=== PATIENT | male | born 1995 | race African-American/Black ===

== ENCOUNTER 2017-03-02 13:15 | Emergency (ER) | payer SELFPAY ==
[2017-03-02 13:21] VITALS: BP 108/79
[2017-03-02] MEDS ORDERED: IBUPROFEN 800 MG TABLET PO ONE (13:57)
[2017-03-02] MEDS ORDERED: OXYCODONE-ACETAMINOPHEN 5-325 MG TABLET PO ONE (13:57)
--- NOTE | 2017-03-02 14:06 | ER Document Report ---
HPI - HPI Patient complains to provider of: Left thigh pain Onset: Just prior to arrival Onset/Duration: Sudden Quality of pain: Sharp Pain Level: 3 Context: Pt states that he was playing basketball and was attempting to jump to perform an layup. Patient states that with jumping he felt a sudden pop in the left posterior thigh area. Patient has complained of pain with ambulation since then. Associated Symptoms: Other - left posterior thigh pain. denies: Fever Exacerbated by: Standing, Movement, Walking Relieved by: Denies Similar symptoms previously: No Recently seen / treated by doctor: No - ROS ROS below otherwise negative: Yes Systems Reviewed and Negative: Yes All other systems reviewed and negative - CONSTITUTIONAL Constitutional: DENIES: Fever, Chills - NEURO Neurology: DENIES: Weakness - MUSCULOSKELETAL Musculoskeletal: REPORTS: Extremity pain. DENIES: Swelling - DERM Skin Color: Normal Skin Problems: None Past Medical History - General Information source: Patient - Social History Smoking Status: Current Every Day Smoker Frequency of alcohol use: None Drug Abuse: None Occupation: recycling Family History: Reviewed & Not Pertinent Patient has suicidal ideation: No Patient has homicidal ideation: No - Medical History Medical History: Negative Renal/ Medical History: Denies: Hx Peritoneal Dialysis Surgical Hx: Negative - Immunizations Hx Diphtheria, Pertussis, Tetanus Vaccination: Yes Vertical Provider Document - CONSTITUTIONAL Agree With Documented VS: Yes Exam Limitations: No Limitations General Appearance: WD/WN, No Apparent Distress - INFECTION CONTROL TRAVEL OUTSIDE OF THE [place] IN LAST 30 DAYS: No - HEENT HEENT: Atraumatic, Normocephalic - NECK Neck: Normal Inspection, Supple - RESPIRATORY Respiratory: Breath Sounds Normal, No Respiratory Distress O2 Sat by Pulse Oximetry: 96 - CARDIOVASCULAR Cardiovascular: Regular Rate, Regular Rhythm, No Murmur Pulses: Normal: Posterior tibial, Dorsalis pedis - BACK Back: Normal Inspection - MUSCULOSKELETAL/EXTREMETIES Musculoskeletal/Extremeties: MAEW, FROM, Tender - pt with left posterior bicep femoris muscle, muscles soft to palpation, no palpable deformity swelling. No ecchymosis. No concern for compartment syndrome - NEURO Level of Consciousness: Awake, Alert, Appropriate Motor/Sensory: No Motor Deficit, No Sensory Deficit - DERM Integumentary: Warm, Dry, No Rash Course - Vital Signs Vital signs: Temp Pulse Resp BP Pulse Ox 98.6 F 102 H 20 108/79 96 03/02/17 13:20 07/01/17 13:20 03/02/17 13:20 03/02/17 13:20 03/02/17 13:20 Discharge - Discharge Clinical Impression: Muscle strain Condition: Stable Disposition: HOME, SELF-CARE Instructions: Muscle Strain ([facility]), Use of Crutches ([facility]), Oral Narcotic Medication ([facility]) Additional Instructions: Return immediately for any new or worsening symptoms Followup with your primary care provider, call tomorrow to make a followup appointment Follow-up with orthopedic doctor for any continued pain or problems Weightbearing as tolerated Prescriptions: Naproxen [Naprosyn 250 Nmg Tablet] 1 tab PO BID #14 tablet Oxycodone HCl/Acetaminophen [Percocet 5-325 mg Tablet] 1 tab PO ASDIR PRN #15 tablet PRN Reason: Referrals: [facility] [Provider Group] - Follow up as needed
== END 2017-03-02 14:30 | disposition home or self-care (01) ==
LOC: ER 13:15
DX: S76.912A Strain of unspecified muscles, fascia and tendons at thigh level, left thigh, initial encounter (principal); M79.652 Pain in left thigh; X58.XXXA Exposure to other specified factors, initial encounter; Y93.67 Activity, basketball; F17.200 Nicotine dependence, unspecified, uncomplicated
CPT/HCPCS: 99283

== ENCOUNTER 2017-08-20 21:36 | Emergency (ER) | payer SELFPAY ==
--- NOTE | 2017-08-20 23:12 | ER Document Report ---
ED General - General Chief Complaint: STD Exposure Stated Complaint: POSSIBLE STD Time Seen by Provider: 08/20/17 22:52 Notes: Patient is a 22-year-old male who presents to the ER with complaint of want to be tested for chlamydia. Patient says her sexual partner was recently told by assistant program manager that she had chlamydia. He says that she was tested and treated back and december. He was also tested and treated back in December. He says he has had no symptoms. No dysuria, no discharge, no redness or swelling to the penis. He says he is here because of his partners positive test. He has no other complaints at this time. No abdominal pain. TRAVEL OUTSIDE OF THE [place] IN LAST 30 DAYS: No - Related Data Allergies/Adverse Reactions: No Known Allergies Allergy (Verified 03/02/17 13:19) Past Medical History - Social History Smoking Status: Unknown if Ever Smoked Frequency of alcohol use: None Drug Abuse: None Family History: Reviewed & Not Pertinent Renal/ Medical History: Denies: Hx Peritoneal Dialysis - Immunizations Hx Diphtheria, Pertussis, Tetanus Vaccination: Yes Review of Systems - Review of Systems Notes: My Normal Review Basic REVIEW OF SYSTEMS: CONSTITUTIONAL : Denies fever, chills, or sweats. Denies recent illness. GASTROINTESTINAL: Denies abdominal pain. Denies nausea, vomiting, or diarrhea. Denies constipation. Last BM: GENITOURINARY: Denies difficulty urinating, painful urination, burning, frequency, or blood in urine. MUSCULOSKELETAL: Denies neck or back pain or joint pain or swelling. SKIN: Denies rash or skin lesions. ALL OTHER SYSTEMS REVIEWED AND NEGATIVE. Physical Exam - Vital signs Vitals: Temp Pulse Resp BP Pulse Ox 98.9 F 62 16 128/73 H 97 08/20/17 21:56 08/20/17 21:56 08/20/17 21:56 08/20/17 21:56 08/20/17 21:56 - Notes Notes: General Appearance: Well nourished, alert, cooperative, no acute distress, no obvious discomfort. Well appearing. Vitals: reviewed, See vital signs table. Genital: No discharge from penis. No redness or swelling to the penis. No lesions. Skin: warm, dry, appropriate color, no rash Neuro: speech clear, oriented x 3, normal affect, responds appropriately to questions. Course - Re-evaluation Re-evalutation: 08/21/17 00:12 Lab called informed the nurse that something went wrong with the try to run the patient's urine. They said they would have to rerun it could be another hour and half to 2 hours. I did talk to the patient is not want to wait this long. Based on the fact that his partner was recently positive and he has been sexually active with her without condoms I think is appropriate to treat him upfront. I did explain this to the patient he agrees and prefers just to be treated up front as opposed to waiting another hour and half to 2 hours for his test results. I informed the patient and his partner should not have sex for at least another week to give the treatment time to eradicate the infection. I encourage patient to return to ER if he has abnormal discharge from penis, fevers, or if he feels unwell. Patient agrees with plan and will be discharged home. Dictation of this chart was performed using voice recognition software; therefore, there may be some unintended grammatical errors. - Vital Signs Vital signs: Temp Pulse Resp BP Pulse Ox 98.9 F 62 16 128/73 H 97 08/20/17 21:56 08/20/17 21:56 08/20/17 21:56 08/20/17 21:56 08/20/17 21:56 Discharge - Discharge Clinical Impression: STD exposure Condition: Good Disposition: HOME, SELF-CARE Additional Instructions: Please wear condoms when having sex. Please wait at least 1 week before having sex again with your partner. It is probably best to make sure that she is retested before having sex again. This should be done in approximately 1 week with her assistant program manager. Please return to ER if you have abnormal discharge from the penis, redness or swelling to her penis, fevers, or if you feel unwell. Forms: Return to Work
[2017-08-21] MEDS ORDERED: LIDOCAINE 1% INJ-PF (10 MG/ML) 30 ML SDV INFIL ONE (00:12)
[2017-08-21] MEDS ORDERED: AZITHROMYCIN 250 MG TABLET PO ONE (00:12)
[2017-08-21] MEDS ORDERED: CEFTRIAXONE INJ 250 MG VIAL IM ONE (00:12)
[2017-08-21 00:37] VITALS: BP 132/78
== END 2017-08-21 00:36 | disposition home or self-care (01) ==
LOC: ER 21:36
DX: Z20.2 Contact with and (suspected) exposure to infections with a predominantly sexual mode of transmission (principal)
CPT/HCPCS: 99283; 96372; 87491; 87591; J3490; J0696

== ENCOUNTER 2018-08-16 13:44 | Emergency (ER) | payer SELFPAY ==
--- NOTE | 2018-08-16 13:58 | ER Document Report ---
ED Medical Screen (RME) - General Chief Complaint: Testicular Swelling Stated Complaint: TESTICULAR SWELLING Time Seen by Provider: 08/16/18 13:57 Mode of Arrival: Ambulatory Information source: Patient TRAVEL OUTSIDE OF THE [place] IN LAST 30 DAYS: No - HPI Patient complains to provider of: testicular swelling Onset: Other - pt states has had testicular swelling for the past few days. Now painful - Related Data Allergies/Adverse Reactions: No Known Allergies Allergy (Verified 08/16/18 13:45) Past Medical History Renal/ Medical History: Denies: Hx Peritoneal Dialysis - Immunizations Hx Diphtheria, Pertussis, Tetanus Vaccination: Yes Physical Exam - Vital signs Vitals: Temp Pulse Resp BP Pulse Ox 98.2 F 52 L 16 139/81 H 100 08/16/18 13:46 08/16/18 13:46 08/16/18 13:46 08/16/18 13:46 08/16/18 13:46 Course - Vital Signs Vital signs: Temp Pulse Resp BP Pulse Ox 98.2 F 52 L 16 139/81 H 100 08/16/18 13:46 08/16/18 13:46 08/16/18 13:46 08/16/18 13:46 08/16/18 13:46
--- NOTE | 2018-08-16 14:51 | RADIOLOGY REPORT (SQ) ---
EXAM DESCRIPTION: U/S SCROTUM W/DOPPLER COMPLETED DATE/TIME: 08/16/2018 2:32 pm REASON FOR STUDY: testicular swelling COMPARISON: None. TECHNIQUE: Static and realtime amaral scale imaging of the scrotum and testes. Selected color Doppler and spectral images recorded to document blood flow. LIMITATIONS: None. FINDINGS: RIGHT: TESTICLE: Measures 3.4 x 2.5 x 2.7 cm. Normal echotexture. Normal blood flow. No mass. EPIDIDYMIS: The epididymal head measures 0.9 x 0.8 x 0.8 cm HYDROCELE OR VARICOCELE: No. HERNIA OR EXTRA-TESTICULAR MASS: No. LEFT: TESTICLE: Measures 3.2 x 2.4 x 3.3 cm. Normal echotexture. Increased vascularity on Doppler images. No mass. EPIDIDYMIS: The epididymis measures 1.6 x 1.2 x 2.1 cm, it has a heterogeneous appearance with increa sed vascularity on Doppler images. HYDROCELE OR VARICOCELE: There is a moderate hydrocele with mobile debris. No varicocele. HERNIA OR EXTRA-TESTICULAR MASS: No. IMPRESSION: 1. No evidence of testicular torsion. 2. Heterogeneous appearance of the left epididymis with increased vascularity and increased vasculari ty of the left testicle, most consistent with acute left epididymoorchitis. 3. Moderate left-sided hydrocele with mobile debris, suggestive of chronicity. TECHNICAL DOCUMENTATION: JOB ID: [id number] [employer]- All Rights Reserved Reading location - IP/workstation name: [email or web address]
[2018-08-16 14:53] LABS: APPEARANCE,URINE SLIGHTLY-CLOUDY; BILIRUBIN,URINE NEGATIVE (NEGATIVE); COLOR,URINE YELLOW; GLUCOSE, URINE NEGATIVE (NEGATIVE); KETONES,URINE NEGATIVE (NEGATIVE); LEUKOCYTE ESTERASE,URINE MODERATE (NEGATIVE); NITRITE,URINE NEGATIVE (NEGATIVE); PROTEIN,URINE NEGATIVE (NEGATIVE); URINE SPECIFIC GRAVITY 1.017
[2018-08-16] MEDS ORDERED: LIDOCAINE 1% INJ-PF (10 MG/ML) 30 ML SDV INFIL ONE (15:32)
[2018-08-16] MEDS ORDERED: DOXYCYCLINE HYCLATE 100 MG TABLET PO ONE (15:32)
[2018-08-16] MEDS ORDERED: CEFTRIAXONE INJ 250 MG VIAL IM ONE (15:32)
--- NOTE | 2018-08-16 15:39 | ER Document Report ---
ED GI/ - General Chief Complaint: Testicular Swelling Stated Complaint: TESTICULAR SWELLING Time Seen by Provider: 08/16/18 13:57 Mode of Arrival: Ambulatory Information source: Patient Notes: 23-year-old male who presents with his mom with acute onset of some left-sided testicular pain at around noon. Patient denies a history of this previously. He denies any new sexual partners, dysuria, or penile discharge. He denies any lower abdominal or back pain. TRAVEL OUTSIDE OF THE [place] IN LAST 30 DAYS: No - HPI Patient complains to provider of: Other - See above Onset: Other - See above Timing/Duration: Sudden Quality of pain: Achy Severity at maximum: Moderate Severity in ED: None Pain Level: 0 Context: Other - See above Location: Other - See above Sexual history: Active Associated symptoms: Other Exacerbated by: Denies Relieved by: Denies - Related Data Allergies/Adverse Reactions: No Known Allergies Allergy (Verified 08/16/18 13:45) Past Medical History - General Information source: Patient - Social History Smoking Status: Never Smoker Chew tobacco use (# tins/day): No Frequency of alcohol use: None Drug Abuse: Marijuana Family History: Reviewed & Not Pertinent Patient has suicidal ideation: No Patient has homicidal ideation: No Renal/ Medical History: Denies: Hx Peritoneal Dialysis - Immunizations Hx Diphtheria, Pertussis, Tetanus Vaccination: Yes Review of Systems - Review of Systems Constitutional: denies: Fever EENT: denies: Eye discharge, Nose discharge, Throat swelling, Mouth pain Gastrointestinal: denies: Diarrhea, Vomiting Genitourinary: denies: Dysuria Skin: denies: Rash Neurological/Psychological: Other - no slurred speech -: Yes All other systems reviewed and negative Physical Exam - Vital signs Vitals: Temp Pulse Resp BP Pulse Ox 98.2 F 52 L 16 139/81 H 100 08/16/18 13:46 08/16/18 13:46 08/16/18 13:46 08/16/18 13:46 08/16/18 13:46 Notes: Reviewed vital signs and nursing note as charted by RN. CONSTITUTIONAL: Alert and oriented and responds appropriately to questions. Well -appearing; well-nourished HEAD: Normocephalic; atraumatic EYES: PERRL; Conjunctivae clear, sclerae non-icteric ENT: Normal nose; no rhinorrhea; moist mucous membranes; pharynx without lesions noted ABD/GI: Normal bowel sounds; non-distended; soft, non-tender; no palpable organomegaly or masses GI/: Patient currently has no testicular pain or swelling, no inguinal masses , no penile lesions or urethral discharge BACK: The back appears normal and is non-tender to palpation EXT: Normal ROM in all joints; non-tender to palpation; no edema SKIN: No acute lesions noted NEURO: CN 2-12 intact; 5/5 bilateral upper and lower extremity strength with sensation intact to light touch PSYCH: The patient's mood and manner are appropriate. Grooming and personal hygiene are appropriate. Course - Re-evaluation Re-evalutation: Given the above history and physical examination, patient was expedited immediately to ultrasound for the possibility of acute testicular torsion. Urine analysis and urine chlamydia/gonorrhea has been sent 08/16/18 15:36 Ultrasound as recorded. Urine analysis as recorded. Given the patient's age, we would treat the patient with a shot of Rocephin as well as a 10-day course of doxycycline. Patient has 0 pain at this time. Patient will be discharged home with strict return precaution and follow-up with urology. - Vital Signs Vital signs: Temp Pulse Resp BP Pulse Ox 98.2 F 52 L 16 139/81 H 100 08/16/18 13:46 08/16/18 13:46 08/16/18 13:46 08/16/18 13:46 08/16/18 13:46 - Laboratory Laboratory results interpreted by me: 08/16/18 14:03 Urine Urobilinogen 4.0 H Ur Leukocyte Esterase MODERATE H Discharge - Discharge Additional Instructions: Come back immediately with any return of pain, swelling, fevers, inability to urinate, or any other acute problems. Please take the antibiotics as prescribed and please follow-up with urology as provided. Prescriptions: Doxycycline Hyclate 100 mg PO BID 10 Days #20 capsule Forms: Return to Work Referrals: [facility] [Provider Group] - Follow up as needed
[2018-08-16 16:57] VITALS: BP 128/73
[2018-08-16 18:22] LABS: CHLAM PCR DETECTED (NOT DETECT); GON PCR NOT DETECTED (NOT DETECT)
== END 2018-08-16 17:15 | disposition home or self-care (01) ==
LOC: ER 13:44
DX: N45.3 Epididymo-orchitis (principal); N50.89 Other specified disorders of the male genital organs
CPT/HCPCS: 99284; 96372; 36415; 87086; 81001; 87491; 87591; 76870; 93976; J3490; J0696